=== PATIENT | male | born 1985 | race Caucasian/White ===

== ENCOUNTER 2022-04-14 09:04 | Outpatient (CLI) | payer BC, SELFPAY ==
--- NOTE | 2022-04-14 09:15 | MR_ITS ---
[facility] [address] [address] Phone:?[phone] Fax:?[phone] Referring Physician Information: Farhana Chowdhury D.O. [address] [facility] [address] Phone:?[phone] Fax:?[phone] Patient:Brooke Willoughby D.O.B:?1985 Sex:?Male Phone:?[phone] [facility] MRN:?[id number] Exam Date:?04/14/2022 ? EXAM: MRI of the RIGHT SHOULDER, without & with contrast CLINICAL INFORMATION: Male, 36 years old, with right shoulder pain and a lump in the axilla. INDICATION: Evaluate shoulder pain and for a soft tissue mass. PRIOR SURGERY: None reported. PLAIN FILMS: None available. COMPARISONS: No prior MRIs available. TECHNICAL INFORMATION: Using a 1.5T MR scanner and a localizing surface coil: coronal obliques: PD, T2, STIR, T1FS pre-gadolinium, T1FS post-gadolinium sagittal obliques: PD, T2 axials: PD, T2, T1FS pre-gadolinium, T1FS post-gadolinium SEDATION: None CONTRAST: 15 mL of gadoterate meglumine was administered intravenously. FINDINGS: Bones: Proximal humerus: No fracture or marrow edema/pathology. No humeral Hill-Sachs or reverse Hill-Sachs lesion/impaction or contusion. Glenoid: No fracture or marrow edema/pathology. No osseous Bankart lesion. Rotator cuff and muscles/tendons: Supraspinatus: No tendinopathy, tear or atrophy. Infraspinatus: No tendinopathy, tear or atrophy. Teres minor: No tendinopathy, tear or atrophy. Subscapularis: Mild-moderate tendinopathy of the superior distal subscapularis, without tendon tear or muscle atrophy. Deltoid: No strain or atrophy. Coracoacromial arch: Acromion morphology: The acromion has type II morphology. No discrete subacromial osseous spur or os acromiale. Acromiohumeral space: The acromiohumeral space is within normal limits. Coracohumeral space: The coracohumeral space is within normal limits. Acromioclavicular joint: Joint: No acute injury, arthropathy, or inferior hypertrophy. Ligaments: Coracoclavicular ligaments are intact. Bursae: Subacromial-subdeltoid: No convincing subacromial bursal thickening/bursitis. Subcoracoid: No convincing subcoracoid bursal thickening/bursitis. Biceps tendon: The long head of the biceps tendon is present within the bicipital groove. The intra-articular and extra-articular segments are intact without tendinosis, tenosynovitis, or displacement. Glenohumeral joint: Effusion/cyst: No significant glenohumeral joint effusion. Articular cartilage: Humeral head: No osteochondral abnormalities. Glenoid: No osteochondral abnormalities. Loose bodies: No discrete intra-articular body within the joint. Labrum:?No discrete SLAP tear. No other definite evidence for labral tear. No paralabral ganglion cyst is identified. Inferior glenohumeral ligament/axilla:?Focal susceptibility artifact is present in the axilla adjacent to the skin marker placed by the patient, suggesting prior excision, however there is no soft tissue nodularity or masslike soft tissue enhancement (coronal T2FS series 4 image 14). Mild-moderate thickening of the inferior glenohumeral ligament (coronal PD series 6 images 13-18). Additionally, there is soft tissue thickening throughout the rotator interval (sagittal PD series 9 images 9-15). IMPRESSION: 1. Mild-moderate subscapularis tendinopathy. No rotator cuff tendon tear. 2. Findings in keeping with any clinical symptoms of adhesive capsulitis. 3. Focal susceptibility artifact in the axilla adjacent to the skin marker placed by the patient is suggestive of postoperative changes. There is no soft tissue mass or abnormal enhancement in this region. 4. No AC joint arthropathy or subacromial-subdeltoid bursitis. 5. No tendinopathy, displacement, or tear of the biceps long head tendon. 6. No labral tear or paralabral cyst. 7. No full-thickness chondral defect or evidence of glenohumeral joint osteoarthritis. BC Electronically signed on 04/14/2022 1:45:00 PM by Mario No M.D.
== END 2022-04-14 09:05 | disposition home or self-care (01) ==
LOC: MRI 09:05
PROVIDERS: PCP Family Medicine; Visit Provider Family Medicine
DX: M25.511 Pain in right shoulder (principal); M19.011 Primary osteoarthritis, right shoulder; M75.01 Adhesive capsulitis of right shoulder; M75.91 Shoulder lesion, unspecified, right shoulder; R20.2 Paresthesia of skin
CPT/HCPCS: 73223; A9575

== ENCOUNTER 2022-06-02 13:59 | Outpatient (CLI) | payer BC, SELFPAY ==
[2022-06-02 12:44] LABS: Albumin* 4.8 g/dL (3.3-5.0)
[2022-06-02 12:45] LABS: Chloride* 102 mmol/L (96-114); Potassium* 4.6 mmol/L (3.6-5.1); Sodium* 140 mmol/L (135-149)
[2022-06-02 12:47] LABS: Aspartate Amino Transferase* 28 U/L (12-35); Bilirubin Total* 1.1 mg/dL (0.1-1.5); Carbon Dioxide* 30 mmol/L (20-32); Cholesterol* 210 mg/dL (90-199); Creatinine* 1.1 mg/dL (0.5-1.5); Estimated Glomerular Filt Rate 89 ml/min; Total Protein* 7.3 g/dL (6.0-8.3)
[2022-06-02 12:48] LABS: Alanine Aminotransferase* 33 U/L (4-50); Alkaline Phosphatase* 72 U/L (40-150); Blood Urea Nitrogen* 19 mg/dL (5-24); Calcium* 9.7 mg/dL (8.4-10.6); Glucose* 87 mg/dL (60-115); HDL Cholesterol* 66 mg/dL (>=40); LDL Cholesterol Calculated 127 mg/dL (<100); Triglycerides* 83 mg/dL (40-149)
[2022-06-02 13:37] LABS: Vitamin B12* 563 pg/mL (243-894)
== END 2022-06-02 14:00 | disposition home or self-care (01) ==
PROVIDERS: PCP Family Medicine; Visit Provider Family Medicine
DX: Z00.00 Encounter for general adult medical examination without abnormal findings (principal); R20.2 Paresthesia of skin; Z13.6 Encounter for screening for cardiovascular disorders
CPT/HCPCS: 80053; 80061; 82607

== ENCOUNTER 2023-06-11 14:49 | Outpatient (CLI) | payer BC, SELFPAY | END 2023-06-11 14:50 | disposition home or self-care (01) | PROVIDERS: PCP Family Medicine; Visit Provider Family Medicine | DX: Z00.00 Encounter for general adult medical examination without abnormal findings (principal); M79.2 Neuralgia and neuritis, unspecified; M79.601 Pain in right arm | CPT/HCPCS: 80053; 80061; 86140 ==

== ENCOUNTER 2024-05-30 11:01 | Outpatient (CLI) | payer BC, SELFPAY | END 2024-05-30 11:02 | disposition home or self-care (01) | PROVIDERS: PCP Family Medicine; Visit Provider Family Medicine | DX: Z13.220 Encounter for screening for lipoid disorders (principal); Z13.228 Encounter for screening for other metabolic disorders | CPT/HCPCS: 80048; 80061 ==

== ENCOUNTER 2025-06-05 10:42 | Outpatient (CLI) | payer BC, SELFPAY | END 2025-06-05 10:43 | disposition home or self-care (01) | PROVIDERS: PCP Family Medicine; Visit Provider Family Medicine | DX: Z13.1 Encounter for screening for diabetes mellitus (principal); Z13.6 Encounter for screening for cardiovascular disorders | CPT/HCPCS: 80048; 80061 ==